=== PATIENT | female | born 1985 | race Caucasian/White ===

== ENCOUNTER 2021-02-27 20:06 | Observation (INO) | payer BC ==
[2021-02-27] MEDS ORDERED: Sodium Chloride 0.9% 1,000 ML IV ONE (20:18)
--- NOTE | 2021-02-27 20:25 | EDM.PDOCBH ---
ED HPI GENERAL MEDICAL PROBLEM - General Time Seen by Provider: 02/27/21 20:15 Source of Information: Reports: Patient, EMS, EMS Notes Reviewed, RN, RN Notes Reviewed History Limitations: Reports: No Limitations - History of Present Illness INITIAL COMMENTS - FREE TEXT/NARRATIVE: Patient is a 35-year-old female who presents to ER per [facility] ambulance service after taking several pills. EMS report was that the patient stated she took the pills because she wanted to harm herself. Police concurred that she reported to them that she took the medications because she wanted to harm herself. Upon arrival to the ER, patient states she is not suicidal, states she took the medications to help her fall asleep. Patient states history of manic bipolar. States that her ex fianc has these medications and she is concerned a bout how she is going to get them. Onset: Today, Sudden - Related Data Allergies Allergy/AdvReac Type Severity Reaction Status Date / Time No Known Allergies Allergy Verified 02/27/21 22:04 Home Meds: Home Meds ALPRAZolam [Xanax] 1 mg PO QID 02/28/21 [History] Baclofen 10 mg PO DAILY PRN 02/28/21 [History] Citalopram [Citalopram HBr] 40 mg PO DAILY 02/28/21 [History] Divalproex Sodium [Divalproex Sodium ER] 500 mg PO BEDTIME 02/28/21 [History] Furosemide 40 mg PO DAILY 02/28/21 [History] Hydrocodone/Acetaminophen [HYDROcodone-Acetaminophen 10-325 MG] 1 tab PO QID 02/28/21 [History] OLANZapine [Olanzapine] 10 mg PO BEDTIME 02/28/21 [History] metOLazone [Metolazone] 2.5 mg PO DAILY 02/28/21 [History] traMADol [Ultram] 50 mg PO Q6HR PRN 02/28/21 [History] ED ROS GENERAL - Review of Systems Review Of Systems: Comprehensive ROS is negative, except as noted in HPI. ED EXAM, BEHAVIORAL HEALTH - Physical Exam Exam: See Below Exam Limited By: No Limitations General Appearance: Alert, WD/WN, Mild Distress (crying) Eye Exam: Bilateral Eye: EOMI, Normal Inspection Ears: Normal External Exam, Hearing Grossly Normal Nose: Normal Inspection Throat/Mouth: Normal Inspection, Normal Voice, No Airway Compromise Head: Atraumatic, Normocephalic Neck: Normal Inspection, Supple, Non-Tender, Full Range of Motion Respiratory/Chest: No Respiratory Distress, Lungs Clear, Normal Breath Sounds, No Accessory Muscle Use, Chest Non-Tender Cardiovascular: Normal Peripheral Pulses, Regular Rate, Rhythm, No Edema, No Gallop, No JVD, No Murmur, No Rub GI/Abdominal: Normal Bowel Sounds, Soft, Non-Tender (Female) Exam: Deferred Rectal (Female) Exam: Deferred Back Exam: Normal Inspection, Full Range of Motion, NT Extremities: Normal Inspection, Normal Range of Motion, Non-Tender, Normal Capillary Refill, No Pedal Edema Neurological: Alert, Normal Mood/Affect, CN II-XII Intact, Normal Cognition, Normal Gait, Normal Reflexes, No Motor/Sensory Deficits, Oriented x 3 Psychiatric: Alert, Normal Affect, Normal Cognition, Oriented, Depressed Mood, Tearful Skin Exam: Warm, Dry, Intact, Normal color, No rash COURSE, BEHAVIORAL HEALTH COMP - Course Vital Signs: Last Vital Signs Temp 98.2 F 02/28/21 06:00 Pulse 77 02/28/21 06:00 Resp 14 02/28/21 06:00 BP 87/55 L 02/28/21 06:00 Pulse Ox 99 02/28/21 06:00 Orders, Labs, Meds: Laboratory Tests 02/27/21 02/27/21 02/27/21 Range/Units 20:29 20:29 20:29 WBC 13.3 H (4.0-10.0) x10^3/uL RBC 4.39 (4.00-5.50) x10^6/uL Hgb 13.7 (12.0-16.0) g/dL Hct 38.7 (33.0-47.0) % MCV 88.2 (78.0-93.0) fL MCH 31.2 (26.0-32.0) pg MCHC 35.4 (32.0-36.0) g/dL RDW Coeff of Darcie 13.3 (10.0-15.0) % Plt Count 242 (130-400) x10^3/uL Immature Gran % (Auto) 0.20 (0.00-0.43) % Neut % (Auto) 60.8 (50.0-80.0) % Lymph % (Auto) 32.4 (25.0-50.0) % Hughes % (Auto) 4.8 (2.0-11.0) % Eos % (Auto) 1.3 (0.0-4.0) % Baso % (Auto) 0.5 (0.2-1.2) % Neut # (Auto) 8.1 H (1.8-7.7) x10^3/uL Lymph # (Auto) 4.3 (1.0-4.8) x10^3/uL Hughes # (Auto) 0.6 (0.0-0.8) x10^3/uL Eos # (Auto) 0.2 (0.0-0.5) x10^3/uL Baso # (Auto) 0.1 (0.0-0.2) x10^3/uL Immature Gran # (Auto) 0.02 (0.00-0.07) x10^3/uL PT 10.4 (9.9-12.5) SEC INR 0.9 L (2.0-3.5) Sodium 136 (136-145) mmol/L Potassium 3.1 L (3.5-5.1) mmol/L Chloride 98 (98-107) mmol/L Carbon Dioxide 27 (21-32) mmol/L Anion Gap 14.1 (5-15) mmol/L BUN 19 H (7-18) mg/dL Creatinine 1.2 H (0.55-1.02) mg/dL Est Cr Clr Drug Dosing TNP Estimated GFR (MDRD) 51 Glucose 93 (70-99) mg/dL Calcium 9.0 (8.5-10.1) mg/dL Corrected Calcium 9.1 (8.5-10.1) mg/dL Magnesium 1.9 (1.8-2.4) mg/dL Total Bilirubin 0.4 (0.2-1.0) mg/dL AST 9 L (15-37) U/L ALT 14 (14-59) U/L Alkaline Phosphatase 68 (46-116) U/L Total Protein 7.5 (6.4-8.2) g/dL Albumin 3.9 (3.4-5.0) g/dL Globulin 3.6 Albumin/Globulin Ratio 1.08 Amylase 30 (25-115) U/L Lipase 70 L (73-393) U/L Urine Color (YELLOW) Urine Appearance (CLEAR) Urine pH (5.0-8.0) Ur Specific Ac[place] Urine Protein (NEGATIVE) mg/dL Urine Glucose (UA) (NEGATIVE) mg/dL Urine Ketones (NEGATIVE) mg/dL Urine Occult Blood (NEGATIVE) Urine Nitrite (NEGATIVE) Urine Bilirubin (NEGATIVE) Urine Urobilinogen (0.2) EU/dL Ur Leukocyte Esterase (NEGATIVE) Urine HCG, Qual (NEGATIVE) Salicylates (2.8-20(Therapeutic)) mg/dL Urine Opiates Screen (NEGATIVE) Ur Buprenorphine Scrn (NEGATIVE) Ur Oxycodone Screen (NEGATIVE) Urine Methadone Screen (NEGATIVE) Acetaminophen 0 L (10-30) ug/ml Ur Barbiturates Screen (NEGATIVE) Ur Phencyclidine Scrn (NEGATIVE) Ur Amphetamine Screen (NEGATIVE) U Methamphetamines Scrn (NEGATIVE) Urine MDMA Screen (NEGATIVE) U Benzodiazepines Scrn (NEGATIVE) U Cocaine Metab Screen (NEGATIVE) U Marijuana (THC) Screen (NEGATIVE) Ethyl Alcohol < 3 (0-3) mg/dL 02/27/21 02/27/21 02/27/21 Range/Units 20:29 21:33 21:33 WBC (4.0-10.0) x10^3/uL RBC (4.00-5.50) x10^6/uL Hgb (12.0-16.0) g/dL Hct (33.0-47.0) % MCV (78.0-93.0) fL MCH (26.0-32.0) pg MCHC (32.0-36.0) g/dL RDW Coeff of Darcie (10.0-15.0) % Plt Count (130-400) x10^3/uL Immature Gran % (Auto) (0.00-0.43) % Neut % (Auto) (50.0-80.0) % Lymph % (Auto) (25.0-50.0) % Hughes % (Auto) (2.0-11.0) % Eos % (Auto) (0.0-4.0) % Baso % (Auto) (0.2-1.2) % Neut # (Auto) (1.8-7.7) x10^3/uL Lymph # (Auto) (1.0-4.8) x10^3/uL Hughes # (Auto) (0.0-0.8) x10^3/uL Eos # (Auto) (0.0-0.5) x10^3/uL Baso # (Auto) (0.0-0.2) x10^3/uL Immature Gran # (Auto) (0.00-0.07) x10^3/uL PT (9.9-12.5) SEC INR (2.0-3.5) Sodium (136-145) mmol/L Potassium (3.5-5.1) mmol/L Chloride (98-107) mmol/L Carbon Dioxide (21-32) mmol/L Anion Gap (5-15) mmol/L BUN (7-18) mg/dL Creatinine (0.55-1.02) mg/dL Est Cr Clr Drug Dosing Estimated GFR (MDRD) Glucose (70-99) mg/dL Calcium (8.5-10.1) mg/dL Corrected Calcium (8.5-10.1) mg/dL Magnesium (1.8-2.4) mg/dL Total Bilirubin (0.2-1.0) mg/dL AST (15-37) U/L ALT (14-59) U/L Alkaline Phosphatase (46-116) U/L Total Protein (6.4-8.2) g/dL Albumin (3.4-5.0) g/dL Globulin Albumin/Globulin Ratio Amylase (25-115) U/L Lipase (73-393) U/L Urine Color Yellow (YELLOW) Urine Appearance Clear (CLEAR) Urine pH 6.5 (5.0-8.0) Ur Specific Acme 1.020 Urine Protein Negative (NEGATIVE) mg/dL Urine Glucose (UA) Negative (NEGATIVE) mg/dL Urine Ketones Negative (NEGATIVE) mg/dL Urine Occult Blood Negative (NEGATIVE) Urine Nitrite Negative (NEGATIVE) Urine Bilirubin Negative (NEGATIVE) Urine Urobilinogen 0.2 (0.2) EU/dL Ur Leukocyte Esterase Negative (NEGATIVE) Urine HCG, Qual Negative (NEGATIVE) Salicylates 7.5 (2.8-20(Therapeutic)) mg/dL Urine Opiates Screen (NEGATIVE) Ur Buprenorphine Scrn (NEGATIVE) Ur Oxycodone Screen (NEGATIVE) Urine Methadone Screen (NEGATIVE) Acetaminophen (10-30) ug/ml Ur Barbiturates Screen (NEGATIVE) Ur Phencyclidine Scrn (NEGATIVE) Ur Amphetamine Screen (NEGATIVE) U Methamphetamines Scrn (NEGATIVE) Urine MDMA Screen (NEGATIVE) U Benzodiazepines Scrn (NEGATIVE) U Cocaine Metab Screen (NEGATIVE) U Marijuana (THC) Screen (NEGATIVE) Ethyl Alcohol (0-3) mg/dL 02/27/21 Range/Units 21:33 WBC (4.0-10.0) x10^3/uL RBC (4.00-5.50) x10^6/uL Hgb (12.0-16.0) g/dL Hct (33.0-47.0) % MCV (78.0-93.0) fL MCH (26.0-32.0) pg MCHC (32.0-36.0) g/dL RDW Coeff of Darcie (10.0-15.0) % Plt Count (130-400) x10^3/uL Immature Gran % (Auto) (0.00-0.43) % Neut % (Auto) (50.0-80.0) % Lymph % (Auto) (25.0-50.0) % Hughes % (Auto) (2.0-11.0) % Eos % (Auto) (0.0-4.0) % Baso % (Auto) (0.2-1.2) % Neut # (Auto) (1.8-7.7) x10^3/uL Lymph # (Auto) (1.0-4.8) x10^3/uL Hughes # (Auto) (0.0-0.8) x10^3/uL Eos # (Auto) (0.0-0.5) x10^3/uL Baso # (Auto) (0.0-0.2) x10^3/uL Immature Gran # (Auto) (0.00-0.07) x10^3/uL PT (9.9-12.5) SEC INR (2.0-3.5) Sodium (136-145) mmol/L Potassium (3.5-5.1) mmol/L Chloride (98-107) mmol/L Carbon Dioxide (21-32) mmol/L Anion Gap (5-15) mmol/L BUN (7-18) mg/dL Creatinine (0.55-1.02) mg/dL Est Cr Clr Drug Dosing Estimated GFR (MDRD) Glucose (70-99) mg/dL Calcium (8.5-10.1) mg/dL Corrected Calcium (8.5-10.1) mg/dL Magnesium (1.8-2.4) mg/dL Total Bilirubin (0.2-1.0) mg/dL AST (15-37) U/L ALT (14-59) U/L Alkaline Phosphatase (46-116) U/L Total Protein (6.4-8.2) g/dL Albumin (3.4-5.0) g/dL Globulin Albumin/Globulin Ratio Amylase (25-115) U/L Lipase (73-393) U/L Urine Color (YELLOW) Urine Appearance (CLEAR) Urine pH (5.0-8.0) Ur Specific [place] Urine Protein (NEGATIVE) mg/dL Urine Glucose (UA) (NEGATIVE) mg/dL Urine Ketones (NEGATIVE) mg/dL Urine Occult Blood (NEGATIVE) Urine Nitrite (NEGATIVE) Urine Bilirubin (NEGATIVE) Urine Urobilinogen (0.2) EU/dL Ur Leukocyte Esterase (NEGATIVE) Urine HCG, Qual (NEGATIVE) Salicylates (2.8-20(Therapeutic)) mg/dL Urine Opiates Screen Positive H (NEGATIVE) Ur Buprenorphine Scrn Negative (NEGATIVE) Ur Oxycodone Screen Negative (NEGATIVE) Urine Methadone Screen Negative (NEGATIVE) Acetaminophen (10-30) ug/ml Ur Barbiturates Screen Negative (NEGATIVE) Ur Phencyclidine Scrn Negative (NEGATIVE) Ur Amphetamine Screen Positive H (NEGATIVE) U Methamphetamines Scrn Negative (NEGATIVE) Urine MDMA Screen Negative (NEGATIVE) U Benzodiazepines Scrn Positive H (NEGATIVE) U Cocaine Metab Screen Negative (NEGATIVE) U Marijuana (THC) Screen Negative (NEGATIVE) Ethyl Alcohol (0-3) mg/dL Medications Discontinued Medications Generic Name Dose Route Start Last Admin Trade Name Freq PRN Reason Stop Dose Admin Hydrocodone Bitart/Acetaminophen 1 tab 02/28/21 08:00 02/28/21 11:41 Acetaminophen/Hydrocodone 325-10 Mg Tab PO 1 tab QID GIOVANNY Administration Alprazolam 1 mg 02/28/21 08:00 02/28/21 11:41 Alprazolam 0.5 Mg Tab PO 1 mg QID GIOVANNY Administration Citalopram Hydrobromide 40 mg 02/28/21 08:00 02/28/21 07:39 Citalopram 20 Mg Tab PO 40 mg DAILY GIOVANNY Administration Divalproex Sodium 500 mg 02/28/21 20:00 Divalproex Sodium 500 Mg Tab.Er PO BEDTIME GIOVANNY Furosemide 40 mg 02/28/21 08:00 02/28/21 07:39 Furosemide 40 Mg Tab PO 40 mg DAILY GIOVANNY Administration Sodium Chloride 1,000 mls @ 999 mls/hr 02/27/21 20:18 02/27/21 20:20 Normal Saline IV 02/27/21 21:18 999 mls/hr ONETIME ONE Administration Metolazone 2.5 mg 02/28/21 08:00 02/28/21 07:39 Metolazone 2.5 Mg Tab PO 2.5 mg DAILY GIOVANNY Administration Non-Formulary Medication 1 mg 02/28/21 08:00 Alprazolam [Xanax] PO QID GIOVANNY Olanzapine 10 mg 02/28/21 20:00 Olanzapine 10 Mg Tab PO BEDTIME GIOVANNY Discharge vs Psych Eval/Treatment:: 02/27/21 22:35 Poison control called regarding the medications that the patient took. Report from EMS was that the patient had taken approximately a half a bottle of 200 mg ibuprofen, 3 hydrocodone, and to 2 mg Xanax. Poison control states acetaminophen level, BMP and treat for GI symptoms. Repeat labs in 4 hours and monitor kidney function. 02/27/21 22:39 [facility] crisis line was called. Rahul from the crisis line did talk to the patient on the phone and assessed her. He states he feels the patient is stable at this time, and is not suicidal. He states after medically cleared the patient could be released to go back to her hotel room to rest. 02/28/21 20:30 Care turned over to Greer Yost NP at change of shift, 0700. Departure - Departure Time of Disposition: 12:41 Disposition: Refer to Observation Clinical Impression: Manic bipolar I disorder Overdose of analgesic Qualifiers: Encounter type: initial encounter Injury intent: undetermined intent Qualified Code(s): T39.94XA - Poisoning by unspecified nonopioid analgesic, antipyretic and antirheumatic, undetermined, initial encounter Overdose of nonsteroidal anti-inflammatory drug (NSAID) Qualifiers: Encounter type: initial encounter Injury intent: undetermined intent Qualified Code(s): T39.394A - Poisoning by other nonsteroidal anti-inflammatory drugs [NSAID], undetermined, initial encounter - Discharge Information *PRESCRIPTION DRUG MONITORING PROGRAM REVIEWED*: No *COPY OF PRESCRIPTION DRUG MONITORING REPORT IN PATIENT ASHLEY: No
[2021-02-27 21:06] LABS: CHLORIDE,CL 98 mmol/L (98-107); SODIUM,NA 136 mmol/L (136-145)
[2021-02-27 21:08] LABS: ANION GAP 14.1 mmol/L (5-15)
[2021-02-27 21:09] LABS: ACETAMINOPHEN 0 ug/ml (10-30)
[2021-02-27 22:33] LABS: BARBITURATE SCREEN,URINE NEGATIVE (NEGATIVE); BENZODIAZEPINES SCREEN,URINE POSITIVE (NEGATIVE); BUPRENORPHINE SCREEN,URINE NEGATIVE (NEGATIVE)
[2021-02-27 22:34] LABS: METHAMPHETAMINE SCREEN, URINE NEGATIVE (NEGATIVE); THC SCREEN,URINE 50 NG/ML NEGATIVE (NEGATIVE)
[2021-02-28 01:10] LABS: CHLORIDE,CL 102 mmol/L (98-107); SODIUM,NA 139 mmol/L (136-145)
[2021-02-28 01:11] LABS: ACETAMINOPHEN 0 ug/ml (10-30)
[2021-02-28] MEDS: ALPRAZolam 0.5 MG Tab PO SCH ×2 (07:30→11:41)
[2021-02-28] MEDS: Acetaminophen/HYDROcodone 325-10 MG Tab PO SCH ×2 (07:39→11:41)
[2021-02-28] MEDS ORDERED: Citalopram 20 MG Tab PO SCH (08:00)
[2021-02-28] MEDS ORDERED: Non-Formulary Medication 1 Each (Alprazolam [Xanax] 1 MG Tablet) PO SCH (08:00)
[2021-02-28] MEDS ORDERED: Furosemide 40 MG Tab PO SCH (08:00)
[2021-02-28] MEDS ORDERED: Metolazone 2.5 MG Tab PO SCH (08:00)
[2021-02-28] MEDS ORDERED: OLANZapine 10 MG Tab PO SCH (20:00)
[2021-02-28] MEDS ORDERED: Divalproex Sodium 500 MG Tab.ER PO SCH (20:00)
== END 2021-02-28 11:50 | disposition home or self-care (01) ==
LOC: VM.ED 20:06 → VM.MS 02-28 00:17 → VM.ED 02-28 00:50
PROVIDERS: ADMIT Nurse Practitioner Family; ATTEND Nurse Practitioner Family
DX: T39.9 Poisoning by, adverse effect of and underdosing of unspecified nonopioid analgesic, antipyretic and antirheumatic (principal); T39.394A Poisoning by other nonsteroidal anti-inflammatory drugs [NSAID], undetermined, initial encounter; Z79.899 Other long term (current) drug therapy; Z20.822 Contact with and (suspected) exposure to COVID-19
CPT/HCPCS: 36415; 80048; 80053; 80143; 80179; 80305-QW; 80307; 81003; 81025; 82150; 83690; 83735; 85025; 85610; 93005; 99285-25; A9270-GY; G0378; J7030; U0002